=== PATIENT | female | born 1995 | race Caucasian/White ===

== ENCOUNTER 2020-03-05 20:33 | Emergency (ER) | payer BC, OTHER ==
[2020-03-05 21:28] LABS: BILIRUBIN,URINE NEGATIVE (NEGATIVE); GLUCOSE, URINE (UA) NEGATIVE (NEGATIVE); KETONES,URINE (UA) NEGATIVE (NEGATIVE); LEUKOCYTE ESTERASE, URINE NEGATIVE (NEGATIVE); NITRITE,URINE NEGATIVE (NEGATIVE); OCCULT BLOOD,URINE NEGATIVE (NEGATIVE); PROTEIN,URINE NEGATIVE (NEGATIVE); UROBILINOGEN,URINE 0.2 (NORMAL) E.U./dL (NORMAL)
[2020-03-05 21:32] LABS: CLARITY,URINE CLEAR (CLEAR); HCG UR QUAL NEGATIVE
--- NOTE | 2020-03-05 21:52 | ED Physician Documentation ---
PD HPI ABD PAIN - Stated complaint Stated Complaint: ABD/BACK PX - Chief complaint Chief Complaint: Abd Pain - History obtained from History obtained from: Patient - History of Present Illness Timing - onset: How many hours ago (1-2) Timing - details: Abrupt onset Pain level now: 8 Quality: Pain Location: All over / everywhere Improved by: Other (no ameliorating factors) Worsened by: Moving, Palpation Associated symptoms: Nausea, Vomiting, Diarrhea ((not new c/o)). No: Fever, Constipation Similar symptoms before: No diagnosis - Additional information Additional information: c/o rapid onset generalized abdominal pain with nausea and vomiting approximately 1-2 hours SHE[employer]OR[employer]. Took Gas-X and dicyclomine without relief. Has had similar symptoms before without diagnosis despite testing including recent CT A/P (although she says tonight's pain is worse than previous episodes). Review of Systems Constitutional: denies: Fever, Chills, Sweats Cardiac: reports: Reviewed and negative Respiratory: reports: Reviewed and negative GI: reports: Abdominal Pain, Nausea, Vomiting, Diarrhea. denies: Abdominal Swelling : denies: Dysuria, Frequency, Hematuria, Now EGA Skin: denies: Rash Musculoskeletal: reports: Reviewed and negative Neurologic: denies: Headache PD PAST MEDICAL HISTORY - Past Medical History Past Medical History: No - Past Surgical History Past Surgical History: No - Present Medications Home Medications: Ambulatory Orders Medication Instructions Recorded Confirmed Ondansetron Odt [Zofran] 4 mg TL Q6H PRN #10 tablet 03/06/20 Oxycodone HCl/Acetaminophen 1 - 2 each PO Q6H PRN #14 tablet 03/06/20 [Percocet 5-325 mg Tablet] - Allergies Allergies/Adverse Reactions: Allergies Allergy/AdvReac Type Severity Reaction Status Date / Time escitalopram [From Lexapro] Allergy Nausea Verified 03/05/20 20:39 wheat Allergy Unknown Verified 03/05/20 20:39 PD ED PE NORMAL - Vitals Vital signs reviewed: Yes - General General: Alert and oriented X 3, Well developed/nourished, Other (appears uncomfortable, mild/moderate painful distress) - HEENT HEENT: Moist mucous membranes - Neck Neck: Supple, no meningeal sign - Cardiac Cardiac: RRR, No murmur - Respiratory Respiratory: No respiratory distress, Clear bilaterally - Abdomen Abdomen: Soft, Non distended, Other (diffuse TTP without rebound or guarding) - Back Back: No CVA TTP - Derm Derm: Normal color, Warm and dry Results - Vitals Vitals: Vital Signs - 24 hr 03/05/20 03/05/20 03/06/20 20:34 22:40 00:28 Temperature 36.4 C L 36.5 C 36.7 C Heart Rate 93 98 79 Respiratory 12 18 16 Rate Blood Pressure 126/76 107/76 114/60 O2 Saturation 96 96 100 03/06/20 00:58 Temperature 37.0 C Heart Rate 77 Respiratory 16 Rate Blood Pressure 112/53 L O2 Saturation 98 Oxygen O2 Source Room air - Labs Labs: Laboratory Tests 03/05/20 03/05/20 03/05/20 21:15 22:30 22:30 WBC 10.4 RBC 4.68 Hgb 13.6 Hct 40.1 MCV 85.7 MCH 29.1 MCHC 33.9 RDW 12.2 Plt Count 250 MPV 10.5 Neut # (Auto) 7.5 H Lymph # (Auto) 1.9 [place] # (Auto) 0.9 Eos # (Auto) 0.1 Baso # (Auto) 0.1 Absolute Nucleated RBC 0.00 Nucleated RBC % 0.0 Sodium 141 Potassium 3.2 L Chloride 105 Carbon Dioxide 23 Anion Gap 13.0 BUN 9 Creatinine 0.8 Estimated GFR (MDRD) 89 Glucose 98 Calcium 9.9 Total Bilirubin 0.9 AST 17 ALT 15 Alkaline Phosphatase 48 Total Protein 7.4 Albumin 4.6 Globulin 2.8 Albumin/Globulin Ratio 1.6 Lipase 27 Urine Color LIGHT YELLOW Urine Clarity CLEAR Urine pH 8.0 H Ur Specific [place] 1.015 Urine Protein NEGATIVE Urine Glucose (UA) NEGATIVE Urine Ketones NEGATIVE Urine Occult Blood NEGATIVE Urine Nitrite NEGATIVE Urine Bilirubin NEGATIVE Urine Urobilinogen 0.2 (NORMAL) Ur Leukocyte Esterase NEGATIVE Ur Microscopic Review NOT INDICATED Urine Culture Comments NOT INDICATED Urine HCG, Qual NEGATIVE PD MEDICAL DECISION MAKING - ED course Complexity details: reviewed results, re-evaluated patient, considered differential, d/w patient ED course: reassuring blood tests/UA. Patient says she has had similar episodes in the recent past with unremarkable w/u including CT A/P. On reevaluation after tests resulted and IV fluids, dilaudid, and zofran, patient is resting comfortably and reports significant improvement. Her repeat abdominal exam reveals nontender abdomen to palpation all quadrants. Instructed to f/u with PMD, return to ED if worse Departure - Departure Disposition: 01 Home, Self Care Clinical Impression: Abdominal pain Qualifiers: Abdominal location: generalized Qualified Code(s): R10.84 - Generalized abdominal pain Condition: Good Instructions: ED Abdominal Pain Unkn Cause Follow-Up: Everett Ramey MD [Primary Care Provider] - Within 3 Days Prescriptions: Oxycodone HCl/Acetaminophen [Percocet 5-325 mg Tablet] 1 - 2 each PO Q6H PRN #14 tablet PRN Reason: pain Ondansetron Odt [Zofran] 4 mg TL Q6H PRN #10 tablet PRN Reason: Nausea / Vomiting Discharge Date/Time: 03/06/20 00:58
[2020-03-05] MEDS ORDERED: HYDROmorphone 1 MG/ML CARPUJECT IVP STA (22:16)
[2020-03-05] MEDS ORDERED: SODIUM CHLORIDE 0.9% 1,000 ML IV STA (22:16)
[2020-03-05] MEDS ORDERED: ONDANSETRON 4 MG/2 ML VIAL IVP STA (22:16)
[2020-03-05 22:59] LABS: BASOPHILS # (AUTO) 0.1 10^3/uL (0.0-0.1); BASOPHILS % (AUTO) 0.5 %; EOSINOPHILS # (AUTO) 0.1 10^3/uL (0.0-0.7); EOSINOPHILS % (AUTO) 0.7 %; HGB - HEMOGLOBIN 13.6 g/dL (12.0-16.0); LYMPHOCYTES # (AUTO) 1.9 10^3/uL (1.5-3.5); LYMPHOCYTES % (AUTO) 18.1 %; MEAN CORPUSCULAR HEMOGLOBIN 29.1 pg (27.0-31.0); MEAN CORPUSCULAR HGB CONC 33.9 g/dL (32.0-36.0); MEAN CORPUSCULAR VOLUME 85.7 fL (81.0-99.0); MEAN PLATELET VOLUME 10.5 fL (7.9-10.8); MONOCYTES # (AUTO) 0.9 10^3/uL (0.0-1.0); MONOCYTES % (AUTO) 8.4 %; NEUTROPHILS # (AUTO) 7.5 10^3/uL (1.5-6.6); NEUTROPHILS % (AUTO) 71.8 %; PLT - PLATELET COUNT 250 10^3/uL (130-450); RED BLOOD COUNT 4.68 10^6/uL (4.20-5.40); RED CELL DISTRIBUTION WIDTH 12.2 % (12.0-15.0); WHITE BLOOD COUNT 10.4 x10^3/uL (4.8-10.8)
[2020-03-05 23:14] LABS: ALBUMIN 4.6 g/dL (3.2-5.5); ALBUMIN/GLOBULIN RATIO 1.6 (1.0-2.2); BILIRUBIN,TOTAL 0.9 mg/dL (0.2-1.0); CALCIUM 9.9 mg/dL (8.5-10.3); CREATININE 0.8 mg/dL (0.4-1.0); TOTAL PROTEIN 7.4 g/dL (6.7-8.2)
[2020-03-06] MEDS ORDERED: oxyCODONE/ACET 5/325 Prepack 4 PO STA (00:30)
[2020-03-06 00:59] VITALS: BP 112/53
== END 2020-03-06 00:58 | disposition home or self-care (01) ==
LOC: ED 20:33
DX: R10.84 Generalized abdominal pain (principal)
CPT/HCPCS: 36415; 80053; 81003; 81025; 83690; 85025; 96361; 96374; 96375; 99283; 99284; J1170; 81001; 87086